=== PATIENT | female | born 1970 | race Caucasian/White ===

== ENCOUNTER 2020-01-29 10:07 | Inpatient (IN) | payer OTHER ==
[2020-01-29 11:13] LABS: BHCG - Serum Negative (NEGATIVE); Pregs Control Background? CLEAR/WHITE (CLR/WHITE); Pregs Control Bar Appear? YES (CONTROL BAR)
--- NOTE | 2020-01-29 11:23 | CT ---
CT BRAIN: Date: 01/29/2020 PROVIDED CLINICAL HISTORY: Seizure. FINDINGS: The ventricular system appears normal in size and morphology. There is no evidence for intracranial h emorrhage or mass effect. The extracranial soft tissues and osseous structures demonstrate an unremar kable CT appearance. IMPRESSION: No evidence for intracranial hemorrhage or mass effect. POS: SALMA
[2020-01-29 11:28] LABS: ALT (SGPT) 91 U/L (8-55); AST (SGOT) 116 U/L (5-34); Albumin 4.1 g/dL (3.5-5.0); Alkaline Phosphatase 57 U/L (40-110); Anion Gap 17 mmol/L (10-20); BUN (Urea Nitrogen) 5 mg/dL (7.0-18.7); Bilirubin, Total 1.8 mg/dL (0.2-1.2); Calc. Creatinine Clearance 0 mL/min (70-130); Calcium 9.1 mg/dL (7.8-10.44); Carbon Dioxide 24 mmol/L (22-29); Chloride 80 mmol/L (98-107); Estimated GFR-MDRD Greater than 90; Globulin 2.9 g/dL (2.4-3.5); Glucose 133 mg/dL (70-105); Potassium 3.3 mmol/L (3.5-5.1)
[2020-01-29 11:30] LABS: #Lymphocytes 0.6 thou/uL (1.20-3.40); #Monocytes 0.4 thou/uL (0.11-0.59); #Neutrophils 5.5 thou/uL (1.40-6.50); %Basophils 0.1 % (0.0-1.0); %Eosinophils 0.3 % (0.0-10.0); %Lymphocytes 9.4 % (21.0-51.0); %Monocytes 6.2 % (0.0-10.0); %Neutrophils 83.9 % (42.0-75.0); Hemoglobin 12.1 g/dL (12.0-16.0); MDiff Complete? YES; Mean Corpuscular Hemoglobin 32.3 pg (27.0-31.0); Mean Corpuscular Volume 97.9 fL (78.0-98.0); Platelet Count 109 thou/uL (130-400); Platelet Morphology Comment Appears Decreased; RBC Distribution Width 12.3 % (11.5-14.5); Red Blood Cell (RBC) Count 3.76 mill/uL (4.20-5.40); White Blood Cell (WBC) Count 6.6 thou/uL (4.8-10.8)
[2020-01-29 11:35] LABS: Sodium 118 mmol/L (136-145)
[2020-01-29] MEDS ORDERED: HYDROcodone/Acetaminophen 5/325 mg Tablet PO PRN (13:14)
[2020-01-29] MEDS ORDERED: Lorazepam 2 MG/ML VIAL SLOW IVP PRN (13:14)
[2020-01-29] MEDS ORDERED: Sodium Chloride 0.9% 1,000 ML IV SCH (13:15)
[2020-01-29] MEDS ORDERED: Potassium Chloride 20 MEQ TAB PO SCH ×5 (13:45→21:00)
[2020-01-29 14:19] LABS: Lactic Acid 1.5 mmol/L (0.5-2.2)
[2020-01-29 14:23] LABS: Anion Gap 14 mmol/L (10-20); BUN (Urea Nitrogen) 4 mg/dL (7.0-18.7); Calc. Creatinine Clearance 0 mL/min (70-130); Carbon Dioxide 24 mmol/L (22-29); Chloride 85 mmol/L (98-107); Estimated GFR-MDRD Greater than 90; Glucose 109 mg/dL (70-105); Potassium 3.1 mmol/L (3.5-5.1); Sodium 120 mmol/L (136-145)
--- NOTE | 2020-01-29 14:27 | PDOC.HHP ---
Hospitalist HPI - History of Present Illness seizure History of Present Illness: 49 y/o white female with no significant pmhx who presented to With chief complain of seizure patient reports that she has been feeling we consider chills for over the last 1 week she reports 1 episode syncope near-syncope and she feels dehydrated patient does not recall the seizure episode however was witnessed by her has been with generalized tonic-clonic seizure that lasted for few minutes and therefore she was brought into the emergency room were her sodium was found to be [address] was unremarkable she was in postictal state during my exam patient mental status has been improving however still somewhat confused and poor historian patient reports that she has chronic hyponatremia however labs from 2015 showed normal sodium of consulted with Neurology and Nephrology for further recommendation patient currently denying chest pain shortness of breath fever chills but does report some nausea no focal neurological deficit and no recurrent seizure since then denies any similar complaints in the past patient denies any past medical history except for some asthma and hyponatremia past surgical history hysterectomy tonsillectomy and hip surgery patient denies any family history social history patient reports almost daily alcoholic use unable to tell me how much denies any smoking or illicit drug use Hospitalist ROS - Review of Systems All other systems reviewed; all pertinent +/- noted in HPI/Subj - Medication Medications: Medication Instructions Recorded Confirmed Type Aspirin 325 mg PO BID 03/03/15 03/03/15 History Hospitalist History - Past Medical History Source: patient Cardiac: reports: no pertinent history Pulmonary: reports: no pertinent history, asthma - Past Surgical History Past Surgical History: reports: no pertinent history - Family History Family History: reports: no pertinent history - Social History Smoking Status: Never smoker Alcohol: reports: Heavy Drugs: reports: none - Exam Eye: PERRL ENT: normocephalic atraumatic Neck: supple, symmetric Heart: RRR, no murmur Respiratory: CTAB Gastrointestinal: soft, non-tender Extremities: no cyanosis, no clubbing Skin: normal turgor, no lesions Neurological: cranial nerve grossly intact Musculoskeletal: normal tone Psychiatric: oriented to person, not oriented, somnolent Hospitalist Results - Labs Result Diagrams: 01/29/20 10:54 01/29/20 13:51 Lab results: WBC 6.6 thou/uL (4.8-10.8) 01/29/20 10:54 Hgb 12.1 g/dL (12.0-16.0) 01/29/20 10:54 Hct 36.8 % (36.0-47.0) 01/29/20 10:54 MCV 97.9 fL (78.0-98.0) 01/29/20 10:54 Plt Count 109 thou/uL (130-400) L 01/29/20 10:54 Neutrophils % 83.9 % (42.0-75.0) H 01/29/20 10:54 Sodium 120 mmol/L (136-145) L 01/29/20 13:51 Potassium 3.1 mmol/L (3.5-5.1) L 01/29/20 13:51 Chloride 85 mmol/L (98-107) L 01/29/20 13:51 Carbon Dioxide 24 mmol/L (22-29) 01/29/20 13:51 BUN 4 mg/dL (7.0-18.7) L 01/29/20 13:51 Creatinine 0.61 mg/dL (0.6-1.1) 01/29/20 13:51 Glucose 109 mg/dL (70-105) H 01/29/20 13:51 Lactic Acid 1.5 mmol/L (0.5-2.2) 01/29/20 13:51 Calcium 8.0 mg/dL (7.8-10.44) 01/29/20 13:51 Total Bilirubin 1.8 mg/dL (0.2-1.2) H 01/29/20 10:54 AST 116 U/L (5-34) H 01/29/20 10:54 ALT 91 U/L (8-55) H 01/29/20 10:54 Alkaline Phosphatase 57 U/L (40-110) 01/29/20 10:54 Serum Total Protein 7.0 g/dL (6.0-8.3) 01/29/20 10:54 Albumin 4.1 g/dL (3.5-5.0) 01/29/20 10:54 - Radiology Interpretation CT scan - head Status: report reviewed by me ([email or web address]) Hospitalist H&P A/P - Problem (1) Seizure Code(s): R56.9 - UNSPECIFIED CONVULSIONS Status: Acute (2) Hyponatremia Code(s): E87.1 - HYPO-OSMOLALITY AND HYPONATREMIA Status: Acute (3) Hypokalemia Code(s): E87.6 - HYPOKALEMIA Status: Acute - Plan Plan: 49 years old female with no significant past medical history presented with new onset seizure found to have hyponatremia of 118 new onset seizure most likely in the setting of hyponatremia: appreciate Neurology consult will go ahead order EEG and MRI no need to start her on anti seizure medication since it is her 1st time seizure will have her on Ativan p.r.n. and neuro checks and seizure precautions hyponatremia: according to the patient she has history of hyponatremia in the past presented to the emergency room with sodium 118 most likely hypovolemic hyponatremia will start on normal saline 150 cc an hour send for urine and serum osmolality and urine electrolytes nephrology Dr. Marion consulted will follow further recommendations monitor sodium q.8 hours hypokalemia potassium replaced continue with supportive care Zofran p.r.n. for nausea clear diet advance as tolerated GI prophylaxis DVT prophylaxis with sequential compression devices and Lovenox therapy Disposition: admitted to inpatient services with anticipated length of stay over 2 midnights Goals of care discussed with patient. Patient is agreeable to current management plan. Code status: full code is her surrogate plan discussed with patient and all questions has been answered]
--- NOTE | 2020-01-29 15:37 | CON ---
NEUROLOGY CONSULTATION: DATE OF CONSULTATION: 01/29/2020 REASON FOR CONSULTATION: New-onset seizure. HISTORY OF PRESENT ILLNESS: Ms. Billy is a 49-year-old female with no significant past medical history, presented to the emergency room with a new-onset seizure. According to the patient, she has been feeling sick with chills and fever with nausea and vomiting for the last 1 week and then she had an episode of loss of consciousness. The patient has no recollection of the event. She denies any aura. The seizure was witnessed by the patient's as a generalized tonic-clonic seizure. She was postictal for several minutes and when she came to the emergency room, she has no recollection of the event and her sodium was 118. The patient denies any prior history of seizures or history of seizures as a child. She denies family history of epilepsy. She was the product of normal . Denies any delays in developmental milestones. There is no history of prematurity. There is no history of brain infection, stroke, meningitis, encephalitis, or history of head trauma. The patient denies any focal weakness, focal paresthesias, problems with speech, vertigo, dizziness, chest pain, abdominal pain associated with the episode. REVIEW OF SYSTEMS: All 14 systems were reviewed and were negative except for pertinent positives and negatives mentioned in the HPI. PAST MEDICAL HISTORY: Chronic hyponatremia and anxiety. PAST SURGICAL HISTORY: Hysterectomy, tonsillectomy, adenoidectomy SOCIAL HISTORY: The patient denies illegal drug use, alcohol abuse. She is a former smoker, quit smoking 10 years ago. , lives with her . FAMILY HISTORY: No family history of epilepsy. ALLERGIES: No known drug allergies. - Medication Medications: Medication Instructions Recorded Confirmed Type Aspirin 325 mg PO BID 03/03/15 03/03/15 History PHYSICAL EXAMINATION: VITAL SIGNS: Blood pressure 120/80, pulse 80, respiratory rate 18. CVS: Regular rate and rhythm. CHEST: Clear. ABDOMEN: Soft. NECK: No carotid bruit. NEUROLOGIC: Mental status; the patient is alert and oriented to person and place. She thinks the year is 2020. Not oriented to the month. Speech is clear. Follows commands appropriately. Cranial nerves 2 through 12 intact. Motor; muscle tone and bulk are normal. Strength 5/5 bilaterally. Sensory intact. Cerebellar, finger-nose testing intact. Gait deferred due to the patient's safety reason. Cranial nerves 2 through 12 intact. 01/29/20 13:51 Lab results: WBC 6.6 thou/uL (4.8-10.8) 01/29/20 10:54 Hgb 12.1 g/dL (12.0-16.0) 01/29/20 10:54 Hct 36.8 % (36.0-47.0) 01/29/20 10:54 MCV 97.9 fL (78.0-98.0) 01/29/20 10:54 Plt Count 109 thou/uL (130-400) L 01/29/20 10:54 Neutrophils % 83.9 % (42.0-75.0) H 01/29/20 10:54 Sodium 120 mmol/L (136-145) L 01/29/20 13:51 Potassium 3.1 mmol/L (3.5-5.1) L 01/29/20 13:51 Chloride 85 mmol/L (98-107) L 01/29/20 13:51 Carbon Dioxide 24 mmol/L (22-29) 01/29/20 13:51 BUN 4 mg/dL (7.0-18.7) L 01/29/20 13:51 Creatinine 0.61 mg/dL (0.6-1.1) 01/29/20 13:51 Glucose 109 mg/dL (70-105) H 01/29/20 13:51 Lactic Acid 1.5 mmol/L (0.5-2.2) 01/29/20 13:51 Calcium 8.0 mg/dL (7.8-10.44) 01/29/20 13:51 Total Bilirubin 1.8 mg/dL (0.2-1.2) H 01/29/20 10:54 AST 116 U/L (5-34) H 01/29/20 10:54 ALT 91 U/L (8-55) H 01/29/20 10:54 Alkaline Phosphatase 57 U/L (40-110) 01/29/20 10:54 Serum Total Protein 7.0 g/dL (6.0-8.3) 01/29/20 10:54 Albumin 4.1 g/dL (3.5-5.0) 01/29/20 10:54 - Radiology Interpretation CT scan - head Status: report reviewed by me (unremarkable) LABORATORY DATA: Data reviewed. I reviewed the head CT, which was unremarkable. The labs were significant for hyponatremia, 118. ASSESSMENT AND PLAN: Ms. Jen Billy is a 49-year-old female with history significant for chronic hyponatremia, presented with new-onset seizure, most likely a provoked seizure in the setting of hyponatremia. She does not have any other risk factors for seizure. Recommend MRI of the brain with chronic seizure protocol to evaluate for seizure focus. Recommend EEG. If above testing is negative, then we do not need to start her on antiseizure medication since this is a new-onset, first-time seizure. Observe seizure precautions. Neuro checks every 4 hours. Ativan 2 mg IV for seizure greater than 3 minutes. Continue home medications. Continue management of hyponatremia per Nephrology. Continue medical management per primary team. PT/OT. We will continue to follow. Job ID: [id number] MTDD
[2020-01-29] MEDS ORDERED: Ondansetron PF 4 MG/2 ML Vial IVP SCH (17:00)
[2020-01-29 17:39] LABS: Alcohol Less than 10 mg/dL (Less than 10); CK (CPK) 153 U/L (29-168)
--- NOTE | 2020-01-29 17:49 | MRI ---
MRI OF THE BRAIN 01/29/20 PROVIDED CLINICAL HISTORY: Seizure. FINDINGS: The ventricular system is normal in size and morphology. There is no evidence for intracranial hemorr isela. No evidence for restricted diffusion to suggest recent infarction. No significant intra-axial s ignal abnormality is evident. Appropriate flow voids are seen within the major intracranial vessels. There is minimal left mastoid fluid. The extracranial soft tissues and the calvarial marrow signal ap pear otherwise normal. IMPRESSION: No evidence for an acute intracranial abnormality. POS: SALMA
[2020-01-29 18:12] LABS: Bacteria/HPF 3+ HPF (None Seen); Bilirubin Negative (Negative); Blood, Urine Trace (Negative); Clarity Clear (Clear); Glucose, Urine (Dipstick) Normal (Negative); Ketone, Urine 40 mg/dL (Negative); Leukocyte Negative Leu/uL (Negative); Nitrite Negative (Negative); Protein, Urine (Dipstick) Negative (Neg-Trace); RBC/HPF 0-3 HPF (0-3); Specific Gravity, Urine 1.008 (1.002-1.036); Squamous Epithelial 0-3 HPF (0-3); Urobilinogen Normal mg/dL (Less than 2); WBC/HPF 0-3 HPF (0-3); pH, Urine 6.5 (5.0-9.0)
[2020-01-29 18:14] LABS: Urine Culture Reflex Yes Yes
[2020-01-29 18:17] LABS: Amphetamine Not Detected (NotDetected); Barbiturates Screen Not Detected (NotDetected); Benzodiazepine Screen Not Detected (NotDetected); Cocaine Metabolite Screen Not Detected (NotDetected); Medtox Control Line Valid? VALID (VALID); Medtox Reader # READER 1; Methadone Not Detected (NotDetected); Methamphetamine Not Detected (NotDetected); Opiate Screen Not Detected (NotDetected); Oxycodone Screen Not Detected (NotDetected); Phencyclidine (PCP) Not Detected (NotDetected); THC/Cannabinoid Screen Not Detected (NotDetected); Tricyclic Screen Not Detected (NotDetected)
[2020-01-29 18:19] LABS: Potassium, Urine 23.8 mmol/L
[2020-01-29 20:07] VITALS: BMI 28.1
[2020-01-29] MEDS: Aspirin 325 MG TAB PO SCH (20:07)
[2020-01-29] MEDS: Calcium Carbonate 500 MG ChewTAB PO PRN (20:07)
[2020-01-29 20:26] LABS: Anion Gap 17 mmol/L (10-20); BUN (Urea Nitrogen) Less than 4 mg/dL (7.0-18.7); Calc. Creatinine Clearance 133 mL/min (70-130); Calcium 8.3 mg/dL (7.8-10.44); Carbon Dioxide 21 mmol/L (22-29); Chloride 86 mmol/L (98-107); Estimated GFR-MDRD Greater than 90; Glucose 100 mg/dL (70-105); Potassium 3.4 mmol/L (3.5-5.1); Sodium 121 mmol/L (136-145)
[2020-01-30 05:05] LABS: #Basophils 0.1 thou/uL (0.0-0.2); #Lymphocytes 2.2 thou/uL (1.20-3.40); #Monocytes 0.7 thou/uL (0.11-0.59); #Neutrophils 4.2 thou/uL (1.40-6.50); %Basophils 1.6 % (0.0-1.0); %Eosinophils 0.2 % (0.0-10.0); %Lymphocytes 29.9 % (21.0-51.0); %Monocytes 9.6 % (0.0-10.0); %Neutrophils 58.6 % (42.0-75.0); Hemoglobin 10.7 g/dL (12.0-16.0); Mean Corpuscular Hemoglobin 32.5 pg (27.0-31.0); Mean Corpuscular Volume 98.5 fL (78.0-98.0); Mean Platelet Volume 9.5 fL (7.4-10.4); Platelet Count 99 thou/uL (130-400); RBC Distribution Width 12.4 % (11.5-14.5); Red Blood Cell (RBC) Count 3.29 mill/uL (4.20-5.40); White Blood Cell (WBC) Count 7.2 thou/uL (4.8-10.8)
[2020-01-30 05:23] LABS: ALT (SGPT) 62 U/L (8-55); AST (SGOT) 71 U/L (5-34); Albumin 3.5 g/dL (3.5-5.0); Alkaline Phosphatase 47 U/L (40-110); Anion Gap 15 mmol/L (10-20); BUN (Urea Nitrogen) Less than 4 mg/dL (7.0-18.7); Bilirubin, Total 1.1 mg/dL (0.2-1.2); Calc. Creatinine Clearance 140 mL/min (70-130); Calcium 8.5 mg/dL (7.8-10.44); Carbon Dioxide 21 mmol/L (22-29); Chloride 95 mmol/L (98-107); Estimated GFR-MDRD Greater than 90; Globulin 2.4 g/dL (2.4-3.5); Glucose 72 mg/dL (70-105); Potassium 3.9 mmol/L (3.5-5.1); Protein, Total 5.9 g/dL (6.0-8.3); Sodium 127 mmol/L (136-145)
--- NOTE | 2020-01-30 05:49 | CON ---
DATE OF CONSULTATION: 01/29/2020 SERVICE: Nephrology. REASON FOR CONSULTATION: Hyponatremia. REQUESTING PHYSICIAN: Dr. Handy. CHIEF COMPLAINT: New onset seizure. HISTORY OF PRESENT ILLNESS: A 49-year-old female with no significant past medical history other than chronic hyponatremia and anxiety, brought in after an observed tonic-clonic seizure at home. The patient reportedly developed a tonic-clonic seizure while at home and this was observed by , who subsequently called EMS and the patient was subsequently brought to the hospital. The patient initially was in postictal state, but currently is back to normal mental status and conversational. She reported that in the last 3 months, she has not been feeling well and has been having nausea associated with intermittent vomiting. The frequency of vomiting has progressively worsened such that in the current week she has vomited about 4 times already. She reported a fairly good intake, though appetite and oral intake wax and wane and depends on how . There is no history of headache, abdominal pain, hematemesis, diarrhea, leg swelling, gait instability, memory lapses, cough, or shortness of breath. In the ER, the patient was found to have severe hyponatremia with level of 118, as well as hypokalemia of 3.1. The patient admitted to alcohol intake, but reports taking about a couple of beers every week on the average. Of note, the patient was admitted in 2014 for chronic alcoholism as well as hyponatremia related to chronic alcohol use and hypokalemia. She then also had transaminitis, which was thought to be related to alcohol abuse. On further questioning, the patient admitted that they had a pool green party at home and she drank more than usual on Saturday being January 26. During that admission in 2014, admission sodium was 131, which resolved and she was 137 at discharge. PAST MEDICAL HISTORY: 1. History of chronic alcohol use. 2. Prior history of intermittent hyponatremia. 3. Anxiety. PAST SURGICAL HISTORY: 1. Hysterectomy. 2. Tonsillectomy. 3. Adenoidectomy. 4. Hip replacement. FAMILY HISTORY: Reviewed, but noncontributory. The patient reported that mother had hyponatremia. There is, however, no history of seizure disorder in the family or premature cardiac disease. SOCIAL HISTORY: The patient lives with . She is a former nurse. She is a former smoker, quit about 3 years ago. She admitted to current alcohol use of about 2 beers per week. However, prior hospital document reviewed, the patient was admitted for chronic alcohol abuse with acute intoxication associated with fall. ALLERGIES: NO KNOWN DRUG ALLERGIES REPORTED. REVIEW OF SYSTEMS: The patient denied dysuria, hematuria, hematemesis, or change in bowel habit. Other component of 12-point review of system performed was negative. PHYSICAL EXAMINATION: VITAL SIGNS: Temperature 99.7, pulse 94, respiratory rate 18, SpO2 of 100% on 2 L nasal cannula, and blood pressure is 189/106. GENERAL: Comfortable female, in no obvious distress. Afebrile, anicteric, acyanotic. HEENT: Normocephalic, atraumatic. Oral mucosa is moist. NECK: Supple with no JVD. CARDIOVASCULAR: Regular rhythm and rate with normal heart sounds 1 and 2. RESPIRATORY: Good air entry bilaterally with no crackle or rhonchi or use of accessory muscles. GI: Full, soft, nontender, nondistended with normal bowel sounds. EXTREMITIES: Grossly normal looking, atraumatic with no edema or erythema. SKIN: No rash or erythema appreciated. CLIENT SUPPORT ASSOCIATE: Conscious, alert, and oriented x3 with appropriate mental status. Cranial nerves 2 through 12 are grossly intact. PSYCH: The patient seems to have normal affect. She, however, seems anxious. DIAGNOSTIC DATA: CBC showed WBC count of 6.6, hemoglobin of 12.1, platelet of 109. CMP on presentation showed sodium 118, potassium 3.3, chloride 80, CO2 of 24, BUN 5, creatinine 0.65, glucose 133, calcium 9.1, total bilirubin 1.8, AST 116, ALT 91, alkaline phosphatase 57, total protein 7.0, albumin 4.1. Initial lactic acid was 4.3, but repeat was 1.5. Repeat BMP 3 hours later showed sodium 120, potassium 3.1, chloride 85, CO2 of 24, BUN 4, creatinine 0.61, glucose 109, calcium 8.0. Magnesium is 1.8. COVID PCR was negative. CT scan of the brain showed normal-appearing ventricular system with no evidence of intracranial hemorrhage or mass effect. ASSESSMENT: 1. Symptomatic hyponatremia: The association of seizure with hyponatremia is suggestive of symptomatic hyponatremia. Etiology of hyponatremia is unclear. However, history of chronic alcohol abuse, slight use is suggestive. Syndrome of inappropriate ADH secretion cannot be ruled out. The patient also has abnormal liver enzymes suggestive of liver pathology. 2. Low solute intake from chronic alcohol abuse cannot be ruled out. Dehydration, however, is unlikely as the patient seems euvolemic and BUN and creatinine are normal. The patient did receive 2 L of normal saline in the ER and subsequent BMP showed mild increase in from 118 to 120. 3. Presumed syndrome of inappropriate ADH secretion. 4. Possible beer potomania. 5. Hypokalemia: Due to poor oral intake. 6. New onset seizure: Etiology is unclear. Most likely due to hyponatremia. Brain pathology cannot be ruled out. 7. Abnormal liver enzymes: Most likely related to alcohol use. 8. We will replete serum potassium with 80 mEq of potassium chloride. 9. We will get serum magnesium and replete if indicated. 10. We will monitor CBC. We will monitor electrolytes serially. 11. We will also get liver ultrasound. 12. Agree with MRI of the brain to rule out space-occupying lesion. 13. We will also get CPK to rule out rhabdomyolysis. 14. We will also get serum and urine osmolality as well as urinalysis and urine sodium. Further treatment to follow depending on hospital course. We will discontinue IV fluid therapy in this patient. Note that this patient with history of chronic alcohol use is at increased risk of demyelination with abrupt correction of sodium level. Job ID: [id number]
[2020-01-30] MEDS ORDERED: Dextrose 5% in Water 1,000 ML IV SCH (06:45)
--- NOTE | 2020-01-30 08:23 | ULT ---
RIGHT UPPER QUADRANT ULTRASOUND: DATE: 01/30/2020. PROVIDED CLINICAL HISTORY: Abnormal liver enzymes. FINDINGS: The visualized IVC and pancreas appear normal. The liver appears echogenic without mass or intrahepa tic biliary ductal dilatation. The common duct is not dilated. Gallbladder demonstrates no stones, wall thickening, or pericholecystic fluid. The right kidney demonstrates no hydronephrosis or mass. IMPRESSION: Fatty infiltration of the liver. POS: SALMA
[2020-01-30] MEDS: Calcium Carbonate 500 MG ChewTAB PO PRN (09:33)
[2020-01-30] MEDS: Aspirin 325 MG TAB PO SCH ×2 (09:33→21:54)
[2020-01-30] MEDS: Enoxaparin Sodium 40 MG/0.4 ML SYRINGE SC SCH (09:34)
[2020-01-30 09:59] LABS: Anion Gap 16 mmol/L (10-20); BUN (Urea Nitrogen) 4 mg/dL (7.0-18.7); Calc. Creatinine Clearance 125 mL/min (70-130); Calcium 9.1 mg/dL (7.8-10.44); Carbon Dioxide 20 mmol/L (22-29); Chloride 94 mmol/L (98-107); Estimated GFR-MDRD Greater than 90; Glucose 96 mg/dL (70-105); Potassium 3.9 mmol/L (3.5-5.1); Sodium 126 mmol/L (136-145)
--- NOTE | 2020-01-30 11:31 | PRG ---
DATE OF SERVICE: 01/30/2020 SERVICE: Nephrology. SUBJECTIVE: A 49-year-old female seen in followup for symptomatic hyponatremia. The patient reports feeling better. No further seizure noted. Oral intake has improved. Nausea and vomiting have subsided. OBJECTIVE: VITAL SIGNS: Temperature 98.6, pulse 72, respiratory rate 20, SpO2 of 99% on room air, blood pressure is 139/87. I and O in the last 24 hours showed total intake of 500. No output was recorded. GENERAL: Comfortable female, in no distress. Afebrile. Anicteric. Acyanotic. HEENT: Normocephalic and atraumatic. Oral mucosa is moist. CARDIOVASCULAR: Regular rhythm and rate with normal heart sounds one and two. RESPIRATORY: Good air entry bilaterally with no crackle or rhonchi or use of accessory muscles. GI: Full, soft, nontender, nondistended with normal bowel sounds. EXTREMITIES: Grossly normal looking, atraumatic with no edema or erythema. CIRCULAR SAWYER HELPER: Conscious and alert, oriented x3 with appropriate mental status. Cranial nerves 2 through 12 are grossly intact. The patient moves all extremities. No tremor was appreciated. DIAGNOSTIC DATA: Chemistry today showed sodium 127, potassium 3.9, chloride 95, CO2 of 21, BUN less than 4, creatinine 0.57, glucose 72, calcium 8.5, total bilirubin 1.1, AST 71, ALT 62, alkaline phosphatase 47, total protein 5.9, albumin 3.5. Blood osmolality was 249 while urine osmolality is 341. Urine drug screen was unremarkable and plasma alcohol level was less than 10. MRI of the brain performed showed no evidence of acute intracranial abnormality. ASSESSMENT: 1. Hyponatremia: Thought to be multifactorial. The patient reported chronic hyponatremia, which may be related to alcohol use as well as poor solute intake. This must have been made worse by acute onset of intractable nausea and some vomiting. The patient also has hypokalemia which could lead to syndrome of inappropriate antidiuretic hormone secretion. Urine electrolytes serum and urine osmolality are consistent with SIADH. Sodium has gone up from 118 on admission to 127 early this morning in less than 24 hours. There is no neurological change. 2. SIADH. 3. New onset seizure: Thought to be due to severe hyponatremia. 4. Chronic alcohol use. 5. History of depression/anxiety. PLAN: 1. We will start dextrose water to slow down the rate of correction. 2. We will recheck BMP in 4 hours and adjust dextrose and treatment appropriately. 3. We will also monitor potassium and replete as indicated. 4. Further treatment to follow depending on hospital course. Job ID: [id number]
[2020-01-30 13:18] LABS: Anion Gap 12 mmol/L (10-20); BUN (Urea Nitrogen) 4 mg/dL (7.0-18.7); Calc. Creatinine Clearance 116 mL/min (70-130); Carbon Dioxide 25 mmol/L (22-29); Chloride 90 mmol/L (98-107); Estimated GFR-MDRD 90; Glucose 132 mg/dL (70-105); Potassium 3.4 mmol/L (3.5-5.1); Sodium 124 mmol/L (136-145)
--- NOTE | 2020-01-30 14:37 | PDOC.HOSPP ---
- Subjective Encounter Date: 01/30/20 Subjective: NEUROLOGY PROGRESS NOTE Patient alert and back to baseline. No seizures since admission. Hyponatremia being evaluated by primary team. - Objective Vital Signs & Weight: Vital Signs (12 hours) Temp Pulse Resp BP Pulse Ox 01/30/20 12:00 99.6 F 83 20 167/84 H 100 01/30/20 08:16 98.0 F 108 H 15 145/81 H 100 01/30/20 04:45 98.6 F 72 20 139/87 99 Weight Admit Weight 164 lb Weight 164 lb 1.6 oz I&O: 01/29/20 01/30/20 01/31/20 06:59 06:59 06:59 Intake Total 500 Balance 500 Result Diagrams: 01/30/20 04:32 01/30/20 12:48 Radiology Reviewed by me: Yes EKG Reviewed by me: Yes Hospitalist ROS - Review of Systems Constitutional: denies: fever, chills, sweats, weakness, malaise, other Eyes: denies: pain, vision change, conjunctivae inflammation, eyelid inflammation, redness, other ENT: denies: ear pain, ear discharge, nose pain, nose discharge, nose congestion , mouth pain, mouth swelling, throat pain, throat swelling, other Respiratory: denies: cough, dry, shortness of breath, hemoptysis, SOB with excertion, pleuritic pain, sputum, wheezing, other Cardiovascular: denies: chest pain, palpitations, orthopnea, paroxysmal noc. dyspnea, edema, light headedness, other Gastrointestinal: denies: nausea, vomiting, abdominal pain, diarrhea, constipation, melena, hematochezia, other Genitourinary: denies: dysuria, frequency, incontinence, hematuria, retention, other Musculoskeletal: denies: neck pain, shoulder pain, arm pain, back pain, hand pain, leg pain, foot pain, other Skin: denies: rash, lesions, fuentes, bruising, other Neurological: denies: weakness, numbness, incoordination, change in speech, confusion, seizures, other - Medication Medications: Active Medications Generic Name Dose Route Start Last Admin Trade Name Freq PRN Reason Stop Dose Admin Aspirin 325 mg 01/29/20 21:00 01/30/20 09:33 Aspirin PO 325 mg BID SUMA Administration Calcium Carbonate 500 mg 01/29/20 18:50 01/30/20 09:33 Tums PO 500 mg Q4H PRN Administration INDIGESTION Enoxaparin Sodium 40 mg 01/30/20 09:00 01/30/20 09:34 Lovenox SC Not Given 0900 SUMA Dextrose/Water 1,000 mls @ 100 mls/hr 01/30/20 06:45 01/30/20 09:34 D5w IV 1,000 mls .Q10H SUMA Administration Sodium Chloride 10 ml 01/30/20 09:00 01/30/20 09:34 Flush - Normal Saline IVF 10 ml Q12HR SUMA Administration - Exam General Appearance: awake alert Eye: PERRL ENT: normocephalic atraumatic Neck: supple Heart: RRR Respiratory: CTAB Gastrointestinal: soft Extremities: no cyanosis Skin: normal turgor Neurological: cranial nerve grossly intact, normal sensation to touch, no weakness, no focal deficits, no new deficit Musculoskeletal: normal tone, normal strength, no muscle wasting Psychiatric: normal affect, normal behavior, A&O x 3, oriented to person, oriented to place, oriented to time Hosp A/P (1) Seizure Code(s): R56.9 - UNSPECIFIED CONVULSIONS Status: Acute (2) Hypokalemia Code(s): E87.6 - HYPOKALEMIA Status: Acute (3) Hyponatremia Code(s): E87.1 - HYPO-OSMOLALITY AND HYPONATREMIA Status: Acute - Plan out of bed/ambulate 49 year old with new onset seizure in the setting of hyponatremia. Most likely a provoked seizure secondary to hyponatremia. No need for anticonvulsants. MRI brain reviewed and was negative for acute process. EEG pending. Observe seizure precautions. Hyponatremia being evaluated by the primary team. Ativan 2 mg IV for seizure greater than 3 minutes. Continue home medications. Continue medical management per primary team. Plan discussed with the patient and the primary attending .
[2020-01-30] MEDS: Potassium Chloride 20 MEQ TAB PO SCH ×2 (16:46→21:54)
--- NOTE | 2020-01-30 17:24 | PDOC.HOSPP ---
- Subjective Encounter Date: 01/30/20 Encounter Time: 09:00 Subjective: The patient states she is doing better. She has no dizziness or lightheadedness. Denies history of low sodium, states that was drinking two quarts of electrolyte water daily. She reports pain while swallowing liquids and solids, states the food gets stuck in her throat and she has to chug extra water to get it down. She states she doesn't recall anything that happened prior to this hospitalization. She believes she may have had trouble eating prior to this - Objective Vital Signs & Weight: Vital Signs (12 hours) Temp Pulse Resp BP Pulse Ox 01/30/20 16:48 99 156/86 H 01/30/20 16:14 98.0 F 01/30/20 16:02 104 H 20 191/99 H 100 01/30/20 12:00 99.6 F 83 20 167/84 H 100 01/30/20 08:16 98.0 F 108 H 15 145/81 H 100 Weight Admit Weight 164 lb Weight 164 lb 1.6 oz I&O: 01/29/20 01/30/20 01/31/20 06:59 06:59 06:59 Intake Total 500 Balance 500 Result Diagrams: 01/30/20 04:32 01/30/20 12:48 Hospitalist ROS - Review of Systems Constitutional: denies: fever, chills - Medication Medications: Active Medications Generic Name Dose Route Start Last Admin Trade Name Freq PRN Reason Stop Dose Admin Aspirin 325 mg 01/29/20 21:00 01/30/20 09:33 Aspirin PO 325 mg BID SUMA Administration Calcium Carbonate 500 mg 01/29/20 18:50 01/30/20 09:33 Tums PO 500 mg Q4H PRN Administration INDIGESTION Enoxaparin Sodium 40 mg 01/30/20 09:00 01/30/20 09:34 Lovenox SC Not Given 0900 SUMA Potassium Chloride 40 meq 01/30/20 16:00 01/30/20 16:46 K-Dur PO 01/30/20 20:01 40 meq Q4H SUMA Administration Sodium Chloride 10 ml 01/30/20 09:00 01/30/20 09:34 Flush - Normal Saline IVF 10 ml Q12HR SUMA Administration - Exam General Appearance: NAD, awake alert Eye: PERRL, anicteric sclera ENT: normocephalic atraumatic, no oropharyngeal lesions Neck: no JVD Heart: RRR, no murmur, no gallops, no rubs Respiratory: CTAB, no wheezes, no rales, no ronchi Gastrointestinal: soft, non-tender, non-distended, normal bowel sounds Extremities: no cyanosis, no clubbing, no edema Skin: normal turgor, no lesions, no rashes Neurological: cranial nerve grossly intact, normal sensation to touch, no focal deficits, no new deficit Musculoskeletal: normal tone, normal strength, no muscle wasting Psychiatric: normal affect, normal behavior, A&O x 3, oriented to person Hosp A/P - Plan Abd US: fatty liver This is 49 year old female who presented with seizure secondary to hyponatremia Hyponatremia - sodium improved to 126, started D5W to avoid rapid overcorrection. Sodium improved to 124. Will dc and repeat BMP tonight Dysphagia/odynophagia - will place consult for evaluation of EGD Seizure - likely from hyponatremia - plan for EEG on Saturday per neurology. MRI brain ordered - no need for antiepileptic per neurolgoy Hypokalemia - potassium 3.4, will replace Anemia - Hb 10, stable Transaminitis - Abd US showed fatty liver Dispo: pending GI consultl, improvement of hyponatremia
[2020-01-30] MEDS ORDERED: Cosyntropin 250 MCG VIAL SLOW IVP SCH (17:30)
--- NOTE | 2020-01-30 18:36 | RAD ---
EXAM: Two views chest PROVIDED CLINICAL HISTORY: Hyponatremia COMPARISON: 02/27/2015 FINDINGS: Cardiac silhouette and pulmonary vasculature are within normal limits. The lungs are clear. The osse ous structures have a normal appearance. Chest is stable compared to prior exam. IMPRESSION: No acute cardiopulmonary process.
[2020-01-30 20:35] LABS: Anion Gap 15 mmol/L (10-20); BUN (Urea Nitrogen) Less than 4 mg/dL (7.0-18.7); Calc. Creatinine Clearance 129 mL/min (70-130); Calcium 9.1 mg/dL (7.8-10.44); Carbon Dioxide 23 mmol/L (22-29); Chloride 89 mmol/L (98-107); Estimated GFR-MDRD Greater than 90; Glucose 129 mg/dL (70-105); Potassium 4.5 mmol/L (3.5-5.1); Sodium 122 mmol/L (136-145)
--- NOTE | 2020-01-30 23:56 | CON ---
DATE OF CONSULTATION: 01/30/2020 REASON FOR CONSULTATION: Dysphagia. HISTORY OF PRESENT ILLNESS: Ms. Billy is a 49-year-old female who presented to the emergency room yesterday and was admitted by the Internal Medicine Service as she had altered mental status and possible seizure. Apparently for the past week or so, she has been feeling weak. She has had some chills. She has had some near syncopal episodes. Does not remember much of the last week. Apparently, her had witnessed a tonic-clonic seizure lasting for a few minutes and she was brought to the emergency room. She has not had a seizure before. Her sodium was 118. She had a CAT scan of her brain that was normal and she was somewhat postictal still when she was admitted by the neurologist. There are some reports that maybe the patient has had hyponatremia in the past, however, labs here from 2014 do not show anything like that. She states she has been eating well, although has complained to the staff here that she has had dysphagia for about 2 years in the mid chest, occasional feeling of hardness in the midchest when she swallows, was able to wash down with liquids or it would be painful until it passes down. She has had reflux at times in the past, although she does not take regular medications. She denies any weight loss. She denies any cough. She denies any symptoms of cervical dysphagia or coughing or choking with eating. She has no history of hemoptysis, TB, or pneumonitis. She states she stopped smoking 7 years ago and stopped drinking alcohol in heavy amounts about 7 years ago. She denies any drug use. The only vitamin she takes is a multivitamin. As far as her workup for hyponatremia, she was found to have a low serum osm. She was felt to be possibly somewhat dehydrated and labs revealed high urine osm at 340 and sodium of 93 with potassium 23. She denies any overt odynophagia. She denies any oral or mouth pain. PAST MEDICAL HISTORY: Asthma, questionable low sodiums in the past. PAST SURGICAL HISTORY: Hysterectomy, tonsillectomy, and hip surgery. FAMILY HISTORY: Negative for colorectal cancer, lung cancer, liver disease, GI disease. SOCIAL HISTORY: Patient used to drink alcohol very heavily, but she states now maybe she just drinks a few drinks a day. She denies smoking or illicit drugs. REVIEW OF SYSTEMS: Negative for rashes, myalgias, arthralgias, chest pain, shortness of breath, or dyspnea on exertion. MEDICATIONS: At home aspirin. Medications here are Farner, aspirin, Tums, Lovenox, Ativan, K-Dur. IV fluids have been held. PHYSICAL EXAMINATION: VITAL SIGNS: Pulse 99 on admission, her pulse is 108. Blood pressure 145/81 on admission, 156/86 now. GENERAL: She is resting comfortably in bed. HEENT: Oropharynx, no lesions. NECK: Supple without adenopathy. LUNGS: Clear. HEART: Regular rate and rhythm without clicks or murmurs. ABDOMEN: Soft and nontender. There is no palpable hepatosplenomegaly. EXTREMITIES: No clubbing, cyanosis, or edema. LABORATORY DATA: Urinalysis on admission showed 3+ bacteria, rare crystals, 40 ketones, trace blood. Urine osm was 340. Urine sodium was 93, urine potassium was 23. Urine drug screen was negative. Alcohol was negative. Sodium was 118 on admission, is up to 124 and 126 today. Potassium 3.9, 3.1 on admission. BUN and creatinine were 4 and 0.6 on admission, is less than 4 and 0.57 now. AST and ALT are 71 and 62 with a bilirubin of 1.1, protein at 5.9, alkaline phosphatase 47. TSH was normal. Prolactin was high at 72. Imaging studies include MRI of the brain. Ultrasound of the abdomen showed fatty liver. No ductal dilatation. No gallstone. ASSESSMENT: 1. Dysphagia going on for 2 years. She may have a component of reflux. She is being worked up for hyponatremia, at which time she had a seizure. She is not a candidate for sedation electively and elective endoscopy at this time. I would recommend a barium esophagram with tablet and starting on a PPI for reflux. 2. Hyponatremia, seems to be hypotonic hyponatremia. The elevated prolactin maybe just from the postictal state. MRI did not show any evidence of lesions. I am not sure it would see the pituitary that well. She has a chest x-ray and probably with her renal electrolytes, she should have an evaluation for adrenal insufficiency with a Cortrosyn stimulation test. We will go ahead and order those as well this. Job ID: [id number]
[2020-01-31 05:09] LABS: Anion Gap 12 mmol/L (10-20); BUN (Urea Nitrogen) Less than 4 mg/dL (7.0-18.7); Calc. Creatinine Clearance 140 mL/min (70-130); Calcium 8.9 mg/dL (7.8-10.44); Carbon Dioxide 22 mmol/L (22-29); Chloride 94 mmol/L (98-107); Estimated GFR-MDRD Greater than 90; Glucose 103 mg/dL (70-105); Potassium 4.3 mmol/L (3.5-5.1); Sodium 124 mmol/L (136-145)
[2020-01-31 05:28] LABS: HBSAg Index 0.16 S/CO (0-0.99); Hep B Surf Ag Non-Reactive S/CO (NonReactive); Hep C IgG Ab Non-Reactive (NonReactive); Hep C Index 0.18 S/CO (0-0.79)
[2020-01-31] MEDS: Aspirin 325 MG TAB PO SCH ×2 (10:25→20:48)
[2020-01-31] MEDS: Amlodipine 5 MG TAB PO SCH (10:25)
[2020-01-31] MEDS: Enoxaparin Sodium 40 MG/0.4 ML SYRINGE SC SCH (10:27)
--- NOTE | 2020-01-31 10:57 | PDOC.HOSPP ---
- Subjective Subjective: The patient is doing well. She has no complaints. Reported allergy to tooth paste this morning ,but feels some bumps on her lip are going away now. No abd pain, nausea and vomiting. She is ambulating around the room without assistance. No dizziness or lightheadedness. She was NPO for barium swallow but this got postponed til tomorrow. Patient anxious to order lunch - Objective Vital Signs & Weight: Vital Signs (12 hours) Temp Pulse Resp BP BP Pulse Ox 01/31/20 10:25 111 H 118/83 01/31/20 08:03 98.5 F 84 20 149/86 H 100 01/31/20 03:41 98.1 F 83 16 150/93 H 99 01/30/20 23:11 98.2 F 84 16 170/89 H 99 Weight Admit Weight 164 lb Weight 164 lb 1.6 oz I&O: 01/30/20 01/31/20 02/01/20 06:59 06:59 06:59 Intake Total 500 Balance 500 Result Diagrams: 01/30/20 04:32 01/31/20 04:38 Hospitalist ROS - Review of Systems Constitutional: denies: fever, chills - Medication Medications: Active Medications Generic Name Dose Route Start Last Admin Trade Name Freq PRN Reason Stop Dose Admin Amlodipine Besylate 5 mg 01/31/20 09:00 01/31/20 10:25 Norvasc PO 5 mg DAILY SUMA Administration Aspirin 325 mg 01/29/20 21:00 01/31/20 10:25 Aspirin PO 325 mg BID SUMA Administration Calcium Carbonate 500 mg 01/29/20 18:50 01/30/20 09:33 Tums PO 500 mg Q4H PRN Administration INDIGESTION Cosyntropin 250 mcg 01/30/20 17:30 01/31/20 10:27 Cortrosyn SLOW IVP 250 mcg WILLCALL SUMA Administration Enoxaparin Sodium 40 mg 01/30/20 09:00 01/31/20 10:27 Lovenox SC Not Given 0900 SUMA Sodium Chloride 10 ml 01/30/20 09:00 01/31/20 10:25 Flush - Normal Saline IVF 10 ml Q12HR SUMA Administration - Exam General Appearance: NAD, awake alert Eye: PERRL, anicteric sclera ENT: normocephalic atraumatic, no oropharyngeal lesions Neck: no JVD Heart: RRR, no murmur, no gallops, no rubs Respiratory: CTAB, no wheezes, no rales, no ronchi Gastrointestinal: soft, non-tender, non-distended, normal bowel sounds Extremities: no cyanosis, no clubbing, no edema Skin: normal turgor, no lesions, no rashes Hosp A/P - Plan Abd US: fatty liver MRI brain: no acute abnormality This is 49 year old female who presented with seizure secondary to hyponatremia Hyponatremia - sodium went from 118 to 126. Was on D5W to avoid overcorrection. Sodium down to 124. Will d/c fluids - repeat BMP after lunch Dysphagia/odynophagia -barium swallow ordered for tomorrow Seizure - likely from hyponatremia - plan for EEG on Saturday per neurology. MRI brain was normal - no need for antiepileptic per neurolgoy Anemia - Hb 10, stable Transaminitis - Abd US showed fatty liver - LFT improving, will recheck LFT today Dispo: pending barium swallow and EEG
--- NOTE | 2020-01-31 11:08 | PRG ---
DATE OF SERVICE: 01/31/2020 SERVICE: Nephrology. SUBJECTIVE: A 49-year-old female, seen in followup for symptomatic hyponatremia. No new problems. Nausea and vomiting have subsided. Denied fever or chest pain. OBJECTIVE: VITAL SIGNS: Temperature 98.5, pulse 84, respiratory rate 20, SpO2 of 100 on room air, blood pressure is 149/86. I's and O's in the last 24 hours showed total intake of 500. This is grossly inconclusive and inaccurate. GENERAL: Comfortable female, in no distress. Afebrile. Anicteric. Acyanotic. HEENT: Normocephalic and atraumatic. Oral mucosa is moist. CARDIOVASCULAR: Regular rhythm and rate with normal heart sounds one and two. RESPIRATORY: Good air entry bilaterally with no crackle or rhonchi or use of accessory muscles. GI: Full, soft, nontender, nondistended with normal bowel sounds. EXTREMITIES: Grossly normal looking, atraumatic with no edema or erythema. SUPERVISOR PIGMENT MAKING: Conscious, alert and oriented x3 with appropriate mental status. The patient is ambulant. DIAGNOSTIC DATA: Chemistry today showed sodium 124, potassium 4.3, chloride 94, CO2 of 22, BUN less than 4, creatinine 0.57, glucose 103, calcium 8.9. ASSESSMENT: 1. Symptomatic hyponatremia: The patient had new onset seizure with sodium of 118. Reported chronic hyponatremia. Sodium today is 124. Rate of correction is appropriate. It was going to run away and the patient received dextrose infusion. We will discontinue dextrose infusion and continue fluid restriction and monitor sodium levels. 2. 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 The etiology is unclear. May be related to poor solute intake. Chronic alcohol use. 3. Hypertension: Control is suboptimal. The patient has not been a known hypertensive and was not on any medication prior to hospitalization. PLAN: 1. Continue fluid restriction. 2. Recheck BMP later today. 3. Start amlodipine 5 mg daily for BP management. 4. Further treatment to follow depending on hospital course. Job ID: [id number]
--- NOTE | 2020-01-31 11:56 | RAD ---
TWO VIEWS CHEST: DATE: 01/31/2020. PROVIDED CLINICAL HISTORY: Hyponatremia. FINDINGS: Comparison 01/30/2020. Cardiac and mediastinal silhouette is within normal limits. No focal consolida tion, pleural fluid, or pneumothorax apparent. IMPRESSION: No evidence for an acute cardiopulmonary process. POS: SALMA
[2020-01-31] MEDS: Calcium Carbonate 500 MG ChewTAB PO PRN (12:36)
[2020-01-31 13:05] LABS: ALT (SGPT) 73 U/L (8-55); AST (SGOT) 102 U/L (5-34); Albumin 4.5 g/dL (3.5-5.0); Alkaline Phosphatase 61 U/L (40-110); Anion Gap 14 mmol/L (10-20); BUN (Urea Nitrogen) 5 mg/dL (7.0-18.7); Bilirubin, Direct 0.6 mg/dL (0.1-0.3); Bilirubin, Total 1.1 mg/dL (0.2-1.2); Calc. Creatinine Clearance 85 mL/min (70-130); Calcium 9.8 mg/dL (7.8-10.44); Carbon Dioxide 25 mmol/L (22-29); Chloride 92 mmol/L (98-107); Estimated GFR-MDRD 63; Glucose 188 mg/dL (70-105); Potassium 4.2 mmol/L (3.5-5.1); Protein, Total 7.6 g/dL (6.0-8.3); Sodium 127 mmol/L (136-145)
[2020-01-31] MEDS ORDERED: Pantoprazole 40 MG VIAL IVP SCH (14:30)
[2020-01-31 18:50] LABS: Anion Gap 13 mmol/L (10-20); BUN (Urea Nitrogen) 5 mg/dL (7.0-18.7); Calc. Creatinine Clearance 101 mL/min (70-130); Calcium 9.9 mg/dL (7.8-10.44); Carbon Dioxide 23 mmol/L (22-29); Chloride 91 mmol/L (98-107); Estimated GFR-MDRD 77; Glucose 154 mg/dL (70-105); Potassium 4.2 mmol/L (3.5-5.1); Sodium 123 mmol/L (136-145)
[2020-01-31] MEDS ORDERED: Sodium Chloride 0.9% 1,000 ML IV SCH (19:00)
[2020-01-31] MEDS: Pantoprazole 40 MG VIAL IVP SCH (20:49)
[2020-02-01 01:30] LABS: Anion Gap 11 mmol/L (10-20); BUN (Urea Nitrogen) Less than 4 mg/dL (7.0-18.7); Calc. Creatinine Clearance 116 mL/min (70-130); Calcium 9.3 mg/dL (7.8-10.44); Carbon Dioxide 26 mmol/L (22-29); Chloride 94 mmol/L (98-107); Estimated GFR-MDRD 90; Glucose 108 mg/dL (70-105); Sodium 127 mmol/L (136-145)
[2020-02-01] MEDS: Pantoprazole 40 MG VIAL IVP SCH (09:07)
[2020-02-01] MEDS: Amlodipine 5 MG TAB PO SCH (09:07)
[2020-02-01 09:33] LABS: Sodium 129 mmol/L (136-145)
--- NOTE | 2020-02-01 10:08 | PRG ---
DATE OF SERVICE: 02/01/2020 SERVICE: Nephrology. SUBJECTIVE: A 49-year-old female admitted after a new onset seizure and subsequently found to have hyponatremia. Nephrology is following the patient for hyponatremia. No new problem. Denied headache, nausea, vomiting, or focal neurological deficit. The patient is currently getting PEG and barium swallow is planned. OBJECTIVE: VITAL SIGNS: Temperature 97.8, pulse 79, respiratory rate 16, SpO2 of 98% on room air, blood pressure is 124/78. INR again is inconclusive. GENERAL: Comfortable female, in no distress. Afebrile. Anicteric. Acyanotic. HEENT: Normocephalic, atraumatic. Oral mucosa is moist. NECK: Supple with no JVD. CARDIOVASCULAR: Regular rhythm and rate with normal heart sounds one and two. RESPIRATORY: Good air entry bilaterally with no crackle or rhonchi or use of accessory muscles. GI: Full, soft, nontender, nondistended with normal bowel sounds. EXTREMITIES: Grossly normal looking atraumatic with no edema or erythema. SENIOR DESIGNER: Conscious, alert, oriented x3 with appropriate mental status. Cranial nerves 2 through 12 are grossly intact. DIAGNOSTIC DATA: Chemistry this morning is significant for sodium of 129. This was on the sample collected at 9:05 a.m. on January 31. Prior chemistry at 00.52 hours showed sodium 127, potassium 4.0, chloride 94, CO2 of 26, BUN less than four, creatinine 0.69, glucose 108, and calcium 9.3. ASSESSMENT: 1. Symptomatic hyponatremia: Due to syndrome of inappropriate antidiuretic hormone with acute worsening of sodium related to intractable nausea. Sodium is trending up with fluid restriction. 2. Syndrome of inappropriate antidiuretic hormone as suggested by plasma and urine osmolality. The patient has chronic hyponatremia. Some component of chronic alcohol use as well as liver pathology of fatty infiltration cannot be ruled out. 3. New onset seizure: Thought to be due hyponatremia. Further evaluation as per Neurology. PLAN: We will continue fluid restriction. There is no need for salt tablet or any other medication as sodium is trending up as desired with fluid restriction alone. If sodium continue to trend up, the patient can be discharged from Nephrology point of view with outpatient followup on fluid restriction alone. Further treatment to follow depending on hospital course. Job ID: [id number]
--- NOTE | 2020-02-01 11:35 | PDOC.HOSPP ---
- Subjective Encounter Date: 02/01/20 Subjective: NEUROLOGY PROGRESS NOTE Patient alert and back to baseline. No seizures since admission. Hyponatremia being evaluated by primary team. MRI Brain and EEG negative. - Objective Vital Signs & Weight: Vital Signs (12 hours) Temp Pulse Resp BP BP Pulse Ox 02/01/20 09:07 79 02/01/20 08:06 79 02/01/20 08:00 97.8 F 122 H 16 124/78 98 02/01/20 03:24 98.7 F 68 16 149/87 H 100 02/01/20 00:47 98.2 F 82 18 149/84 H 100 Weight Admit Weight 164 lb Weight 164 lb 1.6 oz I&O: 01/31/20 02/01/20 02/02/20 06:59 06:59 06:59 Intake Total 980 Balance 980 Result Diagrams: 01/30/20 04:32 02/01/20 09:05 Radiology Reviewed by me: Yes EKG Reviewed by me: Yes Hospitalist ROS - Review of Systems Constitutional: denies: fever, chills, sweats, weakness, malaise, other Eyes: denies: pain, vision change, conjunctivae inflammation, eyelid inflammation, redness, other ENT: denies: ear pain, ear discharge, nose pain, nose discharge, nose congestion , mouth pain, mouth swelling, throat pain, throat swelling, other Respiratory: denies: cough, dry, shortness of breath, hemoptysis, SOB with excertion, pleuritic pain, sputum, wheezing, other Cardiovascular: denies: chest pain, palpitations, orthopnea, paroxysmal noc. dyspnea, edema, light headedness, other Gastrointestinal: denies: nausea, vomiting, abdominal pain, diarrhea, constipation, melena, hematochezia, other Genitourinary: denies: dysuria, frequency, incontinence, hematuria, retention, other Musculoskeletal: denies: neck pain, shoulder pain, arm pain, back pain, hand pain, leg pain, foot pain, other Neurological: denies: weakness, numbness, incoordination, change in speech, confusion, seizures, other - Medication Medications: Active Medications Generic Name Dose Route Start Last Admin Trade Name Freq PRN Reason Stop Dose Admin Amlodipine Besylate 5 mg 01/31/20 09:00 02/01/20 09:07 Norvasc PO 5 mg DAILY SUMA Administration Aspirin 325 mg 01/29/20 21:00 01/31/20 20:48 Aspirin PO 325 mg BID SUMA Administration Calcium Carbonate 500 mg 01/29/20 18:50 01/31/20 12:36 Tums PO 500 mg Q4H PRN Administration INDIGESTION Cosyntropin 250 mcg 01/30/20 17:30 01/31/20 10:27 Cortrosyn SLOW IVP 250 mcg WILLCALL SUMA Administration Pantoprazole Sodium 40 mg 01/31/20 21:00 02/01/20 09:07 Protonix IVP 40 mg Q12HR SUMA Administration Sodium Chloride 10 ml 01/30/20 09:00 02/01/20 09:07 Flush - Normal Saline IVF 10 ml Q12HR SUMA Administration - Exam General Appearance: awake alert Eye: PERRL ENT: normocephalic atraumatic Neck: supple Heart: RRR Respiratory: CTAB Gastrointestinal: soft Extremities: no cyanosis Skin: normal turgor Neurological: cranial nerve grossly intact, normal sensation to touch, no weakness, no focal deficits, no new deficit Musculoskeletal: normal tone, normal strength, no muscle wasting Psychiatric: normal affect, normal behavior, A&O x 3, oriented to person, oriented to place, oriented to time Hosp A/P (1) Seizure Code(s): R56.9 - UNSPECIFIED CONVULSIONS Status: Acute (2) Hypokalemia Code(s): E87.6 - HYPOKALEMIA Status: Acute (3) Hyponatremia Code(s): E87.1 - HYPO-OSMOLALITY AND HYPONATREMIA Status: Acute - Plan 49 year old with new onset seizure in the setting of hyponatremia. Most likely a provoked seizure secondary to hyponatremia. No need for anticonvulsants. MRI brain reviewed and was negative for acute process. EEG negative for seizure activity. Observe seizure precautions. Hyponatremia being evaluated by the primary team. Ativan 2 mg IV for seizure greater than 3 minutes. Continue home medications. Continue medical management per primary team. Plan discussed with the patient and the nursing staff during MDR rounds
--- NOTE | 2020-02-01 12:20 | EEG ---
DATE OF SERVICE: 02/01/2020 ATTENDING PHYSICIAN: Lilliana Mike MD This EEG was performed using 24-channel [employer] video digital EEG machine with 24- disk electrodes. This was an extended 2 hours 5 minutes of EEG recording. Digital analysis of the EEG was done for spike and seizure detection, which revealed no abnormalities. BACKGROUND: The posterior background rhythm is 8.5 to 9 hertz. The background rhythm attenuates with eye opening and enhances with eye closure. HYPERVENTILATION: No significant response seen with hyperventilation. PHOTIC STIMULATION: Bioccipital symmetric driving responses observed. SLEEP: Drowsiness and sleep are observed. EEG DIAGNOSIS: Normal awake, drowsy, and sleep EEG. Job ID: [id number] [facility]
--- NOTE | 2020-02-01 13:39 | RAD ---
Exam: Barium swallow esophagram HISTORY: Dysphagia. Vomiting. Exposure: 2.3 minutes, 5.48 kohli per centimeter square FINDINGS: Initial outer diameter technician chest radiograph demonstrates a normal cardiac silhouette. Lungs and pleural spaces are clear. No pneumothorax or acute osseous abnormalities The cervical and thoracic esophagus have a normal course and caliber. No mucosal abnormality. No extr insic or intrinsic process. No significant reflux during intermittent fluoroscopy. There is a small amount premature spilling into the vallecula and piriform sinuses 13 mm barium tablet passes without difficulty IMPRESSION: 1. No evidence of obstruction. 2. Small amount of premature spillage into the vallecula and piriform sinuses. 3. No delay in passage of a standard 13 mm barium tablet.
[2020-02-01] MEDS: Aspirin 325 MG TAB PO SCH (14:10)
[2020-02-01] MEDS ORDERED: Aspirin Chewable 81 MG TAB PO SCH (14:15)
--- NOTE | 2020-02-01 14:42 | PRG ---
DATE OF SERVICE: 02/01/2020 SUBJECTIVE: Ms. Billy is without complaints today. OBJECTIVE: VITAL SIGNS: Pulse rate is 120, temperature is 97, respirations 18, blood pressure 134/86. ABDOMEN: Nontender. She states she has had no pain with swallowing. LABORATORY DATA: No labs today except for basic metabolic profile of sodium 127, potassium 4, BUN and creatinine of 4 and 0.9. AST and ALT are 102 and 73 yesterday. Hep A, B, C negative. COVID negative. Upper GI is pending. RECOMMENDATIONS: We will follow up on the upper GI results and make recommendations on that. If there is no sign of obstruction, she can be discharged home and follow up in GI as needed. I would keep her on a PPI. Job ID: [id number]
[2020-02-01 15:56] VITALS: BP 122/88; TEMP 98
[2020-02-01 16:41] LABS: Iron 27 ug/dL (50-170); Iron Binding Capacity, Total 269 mcg/dL (265-497)
[2020-02-01 16:42] LABS: Anion Gap 11 mmol/L (10-20); BUN (Urea Nitrogen) 4 mg/dL (7.0-18.7); Calc. Creatinine Clearance 95 mL/min (70-130); Calcium 9.9 mg/dL (7.8-10.44); Carbon Dioxide 28 mmol/L (22-29); Chloride 93 mmol/L (98-107); Estimated GFR-MDRD 72; Glucose 179 mg/dL (70-105); Iron 25 ug/dL (50-170); Iron Binding Capacity, Total 264 mcg/dL (265-497); Sodium 128 mmol/L (136-145)
[2020-02-01 17:07] LABS: Ferritin 414.3 ng/mL (10-291)
--- NOTE | 2020-02-02 00:33 | DIS ---
DATE OF ADMISSION: 01/29/2020 DATE OF DISCHARGE: 02/01/2020 DISCHARGE DIAGNOSES: 1. Acute tonic-clonic seizure secondary to hyponatremia. 2. Anemia. 3. Transaminitis. 4. Fatty liver. 5. Dysphagia. CONSULTATIONS: 1. Dr. Lilliana Mike with Neurology 2. Dr. Nicole Marion with Nephrology, 3. Dr. Pavan Reis with GI. PROCEDURES: barium swallow 01/31 BRIEF HISTORY OF PRESENT ILLNESS: This is a 49-year-old female with a past medical history of alcoholism in the past, who presented to the emergency department with tonic colonic seizure. The patient states that she was having trouble swallowing a week prior and does not think she was eating well. Her reportedly told her that she would often feel dizzy and lightheaded and would hang on to the grider. When she came to the emergency room, she was in a postictal state. Her sodium was found to be 118. She had a CT scan of her head, which was unremarkable. She was admitted for further workup. HOSPITAL COURSE: Acute hyponatremia secondary to seizure/possible SIADH: The patient was initially given 2 L of normal saline and started on IV fluids at 200 an hour in the emergency room. Repeat BMP showed drastic increase in the sodium to 127 within a 24-hour period. She was then placed on D5W to bring her sodium back down to avoid over-correction. Her sodium stayed in the 122 to 124 range on 01/29 and 01/30. She was then given IV fluids with improvement in her sodium to 127. She was started on 1L fluid restriction and her sodium improved to 129 and was 128 at the time of discharge. Of note, patient was NPO in the morning of discharge due to a barium swallow. She was seen by nephrology who felt she had SIADH. She was asymptomatic with no dizziness or lightheadedness and will see Dr. Marion next Saturday in nephrology clinic and will have a repeat BMP on Saturday. Seizure: The patient had a seizure while in the hospital. She was seen by Neurology. Her EEG was normal. Her MRI of her brain and CT scan of her head were negative. She does not need any antiepileptics per Neurology. Dysphagia/odynophagia: The patient reported feeling a sensation of food getting stuck in her throat. She also has odynophagia and dysphagia. She was seen by GI in consultation. A barium swallow was performed, which showed no obstruction of her esophagus. She did have premature spillage into her vallecula and pyriform sinuses. SHe was seen by speech therapy. She was started on protonix by GI and advised to continue this on discharge since this may be contributing to dysphagia. Consider follow up with her PCP in a week. Anemia: The patient had hemoglobin of 10.7 on 01/29. She had vitamin B12 and folate levels checked, were normal. Her iron panel was unremarkable as well. She is to get a repeat CBC in a week with her PCP. Transaminitis: Fatty liver: The patient had an abdominal ultrasound done for elevated liver function tests, which showed a fatty liver. The patient states that she has already abstained from alcohol for the past year or more. She had extensive testing for autoimmune disease by Dr. Reis which is still pending. Follow up final results with PCP. Consider repeat LFTs as an outpatient. DISCHARGE PHYSICAL EXAMINATION: VITAL SIGNS: Temperature 98, heart rate 123, respiratory rate 17, O2 saturation 100% on room air, and blood pressure 122/88. GENERAL: The patient is alert, awake, and oriented x3. CVS: Regular rate and rhythm with no murmurs, rubs, or gallops. LUNGS: Clear to auscultation bilaterally. ABDOMEN: Positive bowel sounds. Soft, nontender, nondistended. EXTREMITIES: No edema. PERTINENT LABORATORY DATA: CBC 01/29: Hemoglobin 10.4, hematocrit 32.4, platelet count 99. BMP 01/31: Sodium 126, potassium 4.0, chloride 93, carbon dioxide 28, BUN 11, creatinine 0.84. Serum osmolality 249. Lactic acid 01/28: Was 4.3, which came down to 1.5. Iron panel: Iron 27, TIBC 269, percent sat 10, ferritin 414. Vitamin B12: 1055. Folate: 15.5. Ceruloplasmin: Pending. Alpha-1 antitrypsin: Pending. Anti-smooth muscle antibody titer: Pending. Hepatitis serology 01/30: Negative. COVID PCR 01/28: Negative. UA 01/28: Unremarkable. Urine culture 01/28: 100,000 mixed enteric karri. IMAGING: CT brain 01/28: Shows no acute disease. MRI brain 01/28: No acute disease. Abdominal ultrasound 01/29: Fatty infiltration of the liver. Chest x-ray 01/29: No acute process. Chest x-ray 01/30: No acute process. Barium swallow x-ray 01/31: No acute process. DISCHARGE MEDICATIONS: 1. Protonix 40 mg p.o. daily. 2. Amlodipine 5 mg p.o. daily. Medication changes: Aspirin reduced to 81 mg p.o. daily per the patient's report of what she is taking. All other home medications were resumed. Please refer to discharge work sheet. DISCHARGE INSTRUCTIONS: The patient to follow up with her PCP in a week. She should repeat CBC to reassess her anemia and repeat LFTs to assess for transaminitis. She did have autoimmune labs ordered by Dr. Reis including MARISSA , ceruloplasmin, anti-smooth muscle antibody, and alpha-1 antitrypsin and antimitochondrial antibody, which were all pending. She should get a repeat BMP in a week and follow up with Dr. Nicole Marion next Saturday. Job ID: [id number] [facility]
[2020-02-02] MEDS ORDERED: Aspirin Chewable 81 MG TAB PO SCH (09:00)
[2020-02-02 14:13] LABS: Smooth Muscle Total ABS 5 Units (0-19)
[2020-02-03 15:14] LABS: Alpha-1-Antitrypsin 158 mg/dL (101-187)
== END 2020-02-01 18:40 | disposition home or self-care (01) | DRG 644 ==
LOC: ERS 10:07 → 2SE 12:26
PROVIDERS: ADMIT Internal Medicine; ATTEND Internal Medicine
DX: E22.2 Syndrome of inappropriate secretion of antidiuretic hormone (principal); E87.2 Acidosis; Z20.828 Contact with and (suspected) exposure to other viral communicable diseases; D64.9 Anemia, unspecified; R74.0 Nonspecific elevation of levels of transaminase and lactic acid dehydrogenase [LDH]; K76.0 Fatty (change of) liver, not elsewhere classified; R13.10 Dysphagia, unspecified; F41.9 Anxiety disorder, unspecified; Z96.641 Presence of right artificial hip joint; E86.0 Dehydration; E87.6 Hypokalemia; E86.1 Hypovolemia; R56.9 Unspecified convulsions; Z87.891 Personal history of nicotine dependence; Z90.710 Acquired absence of both cervix and uterus; Z79.82 Long term (current) use of aspirin; Z79.899 Other long term (current) drug therapy
CPT/HCPCS: 36415; 70450; 70551; 71046; 74220; 76705; 80048; 80053; 80076; 80306; 80307; 80400; 81001; 82103; 82104; 82390; 82436; 82550; 82607; 82728; 82746; 83516; 83540; 83550; 83605; 83735; 83930; 83935; 84133; 84146; 84300; 84443; 84703; 85025; 86038; 86225; 86803; 87086; 87340; 93005; 95712; 95816; 95819; 95957; 96360; 96361; C9113; J0834; J2405; U0002

== ENCOUNTER 2020-07-12 13:48 | Outpatient (CLI) | payer OTHER ==
--- NOTE | 2020-07-12 14:27 | BD ---
EXAM: DEXA bone density examination HISTORY: 49-year-old postmenopausal female for screening COMPARISON: None FINDINGS: L1--bone mineral density 0.904 g/sq cm; T score -0.8 L2--bone mineral density 0.989 g/sq cm; T score -0.4 L3--bone mineral density 0.900 g/sq cm; T score -1.7 L4--bone mineral density 0.840 g/sq cm; T score -2.0 Total L1-L4--bone mineral density 0.907 g/sq cm; T score -1.3 Left femoral neck--bone mineral density0.581; T score -2.4 Total proximal left femur--bone mineral density 0.697; T score -2.0 IMPRESSION: Osteopenia.
--- NOTE | 2020-07-15 16:08 | MMO ---
Bilateral MAMMO Bilat Screen [facility]. CLINICAL HISTORY: Patient is 49 years old and is seen for screening. The patient has the following family history of breast cancer: second cousin. The patient has no personal history of cancer. VIEWS: The views performed were: bilateral craniocaudal with tomosynthesis and bilateral mediolateral oblique with tomosynthesis. FILMS COMPARED: The present examination has been compared to prior imaging studies performed at This study has been interpreted with the assistance of computer-aided detection. MAMMOGRAM FINDINGS: There are scattered fibroglandular densities. There are vascular calcifications seen in both breasts. There are no suspicious masses, suspicious calcifications, or new areas of architectural distortion. IMPRESSION: A ROUTINE FOLLOW-UP MAMMOGRAM IN 1 YEAR IS RECOMMENDED. THE RESULTS OF THIS EXAM WERE SENT TO THE PATIENT. ACR BI-RADS Category 2 - Benign finding MAMMOGRAPHY NOTE: 1. A negative mammogram report should not delay a biopsy if a dominant of clinically suspicious mass is present. 2. Approximately 10% to 15% of breast cancers are not detected by mammography. 3. Adenosis and dense breasts may obscure an underlying neoplasm. Reported by: DYANA HERNANDEZ MD Electonically Signed: [id number]
== END 2020-07-12 13:49 | disposition home or self-care (01) ==
LOC: BICMAMMO 13:48
PROVIDERS: ATTEND Family Medicine
DX: Z12.31 Encounter for screening mammogram for malignant neoplasm of breast (principal); M81.0 Age-related osteoporosis without current pathological fracture; M85.89 Other specified disorders of bone density and structure, multiple sites; Z80.3 Family history of malignant neoplasm of breast
CPT/HCPCS: 77063; 77067; 77080

== ENCOUNTER 2021-01-05 19:30 | Outpatient (CLI) | payer OTHER | END 2021-01-05 19:31 | disposition home or self-care (01) | LOC: SLEEPLAB 19:30 | PROVIDERS: ATTEND Family Medicine | DX: G47.10 Hypersomnia, unspecified (principal); G47.00 Insomnia, unspecified; G47.33 Obstructive sleep apnea (adult) (pediatric); K21.9 Gastro-esophageal reflux disease without esophagitis; R06.83 Snoring; F41.9 Anxiety disorder, unspecified; I10 Essential (primary) hypertension | CPT/HCPCS: 95810 ==

== ENCOUNTER 2021-03-10 19:00 | Outpatient (CLI) | payer OTHER | END 2021-03-10 19:01 | disposition home or self-care (01) | LOC: SLEEPLAB 19:00 | PROVIDERS: ATTEND Family Medicine | DX: G47.33 Obstructive sleep apnea (adult) (pediatric) (principal); K21.9 Gastro-esophageal reflux disease without esophagitis; R06.83 Snoring; I10 Essential (primary) hypertension; F41.9 Anxiety disorder, unspecified; G47.00 Insomnia, unspecified; G47.10 Hypersomnia, unspecified; R00.0 Tachycardia, unspecified | CPT/HCPCS: 95811 ==